=== PATIENT | male | born 1930 | race Caucasian/White ===

== ENCOUNTER 2018-06-21 16:29 | Day surgery (SDC) | payer MEDICARE, BC ==
[~2018-06-21] VITALS: Ht 165.1 cm; Wt 65.1 kg
[2018-06-21] VITALS (10 sets, daily range): BP systolic 136–177; BP diastolic 64–88; PULSE 58–81; RESP 14–29; Ht 165.1 cm; Wt 65.1 kg
[~2018-06-21 16:29] MED LIST: CLINDAMYCIN 900 MG/D5W (PMX) 50 ML IVPB SCH; LACTATED RINGER'S 1,000 ML IV SCH
[2018-06-21] MEDS ORDERED: OXYCODONE/ACETAMINOPHEN (5/325) TAB PO ONE (17:30)
[2018-06-21] MEDS ORDERED: LEVO75TA5 PO (17:40)
[2018-06-21] MEDS ORDERED: MELO7.5O PO (17:40)
[2018-06-21] MEDS ORDERED: CALCIUM 500 MG PO (17:43)
[2018-06-21] MEDS ORDERED: CART1TAB4 PO (17:43)
[2018-06-21] MEDS ORDERED: TIOT4MIS4 INHALATION (17:43)
[2018-06-21] MEDS ORDERED: MULTI PO (17:43)
--- NOTE | 2018-06-21 17:52 | HPN ---
Date/Time of Note Date/Time of Note DATE: 06/21/18 TIME: 17:51 Interval H&P Admission Note Pt. seen H&P reviewed: No system changes CHAU SOSA June 21, 2018 17:51
--- NOTE | 2018-06-21 17:58 | PREAC ---
Date/Time of Note Date/Time of Note DATE: 06/21/18 TIME: 17:56 Anesthesia Eval and Record Evaluation Time Pre-Procedure Interview DATE: 06/21/18 TIME: 17:56 Age 87 Sex male NPO: 8 hrs Preoperative diagnosis Left carpal tunnel syndrome Planned procedure Left carpal tunnel release Past Medical History Past Medical History: Includes Endo: Hypothyroid Pulm: COPD Surgery & Anesthesia Issues No known issue Meds Anticoagulation: No Beta Zarina within 24 hr: No Reason Beta Zarina not given: Pt. not on B-Zarina Reported Medications Tiotropium Br/Olodaterol HCl (Stiolto Respimat Inhal [place]) 4 Gm Mist.inhal, 2 PUFF INHALATION DAILY, #1 INHALER 06/21/18 Cartilage/Collagen/Bor/Hyalur (Move Free Ultra Tablet) 1 Each Tablet, 1 EACH PO, TAB 06/21/18 [calcium 500mg daily] No Conflict Check, 500 CAP PO DAILY 06/21/18 Multivitamins* (Theragran*) 1 Tab Tab, 1 TAB PO DAILY, TAB 06/21/18 Levothyroxine Sodium* (Levothyroxine Sodium*) 75 Mcg Tablet, 75 MCG PO BEFORE BREAKFAST, #30 TAB 06/21/18 Meloxicam* (Meloxicam*) 7.5 Mg/5 Ml Oral.susp, 15 MG PO DAILY, #300 ML 06/21/18 Current Medications Lactated Ringer's 1,000 ml @ 20 mls/hr Q24H IV ; Start 06/21/18 at 06:00; Stop 06/23/18 at 07:59 Meds reviewed: Yes Allergies Coded Allergies: Penicillins (Verified Allergy, Unknown, 06/20/18) pt cant remember, it was back in 1956 Allergies Reviewed: Yes Labs/Studies Labs Reviewed: Reviewed by anesthesiologist test: N/A Pre-procedure Exam Last vitals Vital Signs Date Temp Pulse Resp B/P (MAP) Pulse Ox O2 O2 Flow FiO2 Time Delivery Rate 06/21/18 98.4 81 18 177/81 93 Room Air 17:26 (113) Airway: Adequate mouth opening Mallampati: Mallampati I Teeth: Normal Lung: Normal Heart: Normal ASA Physical Status ASA physical status: 2 Emergency: None Planned Anesthetic General/MAC: MAC Planned Pain Management Parenteral pain med Pre-operative Attestations Prior to commencing anesthesia and surgery, the patient was re-evaluated, there was verification of: *The patient's identity *The results of appropriate recent lab work and preoperative vital signs *The above evaluation not changing prior to induction *Anesthetic plan, risk benefits, alternative and complications discussed with patient/family; questions answered; patient/family understands, accepts and wishes to proceed. MARTIN RICKETTS MD June 21, 2018 17:58
[2018-06-21] MEDS ORDERED: MIDAZOLAM 1 MG/ML 2 ML INJ IV PRN (18:00)
[2018-06-21] MEDS ORDERED: DIPHENHYDRAMINE 50 MG INJ IV PRN (18:00)
[2018-06-21] MEDS ORDERED: hydrALAzine 20 MG INJ IV PRN (18:00)
[2018-06-21] MEDS ORDERED: FENTAnyl 50 MCG/ML VIAL IV PRN ×2 (18:00)
[2018-06-21] MEDS ORDERED: METOCLOPRAMIDE 10 MG INJ IV PRN (18:00)
[2018-06-21] MEDS ORDERED: ONDANSETRON 4 MG INJ IV PRN (18:00)
[2018-06-21] MEDS ORDERED: EPHEDrine 25 MG/5 ML SYG IV PRN (18:00)
[2018-06-21] MEDS ORDERED: OXYCODONE/ACETAMINOPHEN (5/325) TAB PO PRN ×2 (18:00)
[2018-06-21] MEDS ORDERED: LABETALOL HCL 20MG INJ IV PRN (18:00)
[2018-06-21] MEDS ORDERED: MEPERIDINE 25 MG INJ IV PRN (18:00)
[2018-06-21] MEDS ORDERED: BUPIVACAINE 0.5% (SDV) 30 ML INJ ONE (18:03)
[2018-06-21] MEDS ORDERED: PROPOFOL 20 ML ONE (18:10)
[2018-06-21] MEDS ORDERED: FENTAnyl 50 MCG/ML VIAL ONE (18:11)
[2018-06-21] MEDS ORDERED: MIDAZOLAM 1 MG/ML 2 ML INJ ONE (18:11)
[2018-06-21] MEDS ORDERED: CLINDAMYCIN 900 MG/D5W (PMX) 50 ML IVPB ONE (18:21)
--- NOTE | 2018-06-21 18:55 | OPPN ---
Date/Time of Note Date/Time of Note DATE: 06/21/18 TIME: 18:54 Operative Report Preoperative Diagnosis Left carpal tunnel syndrome Postoperative Diagnosis Left carpal tunnel syndrome Operation/Procedure Performed Left carpal tunnel release Surgeon see signature line assistant director none Anesthesia: MAC Estimated blood loss: 0 - 10 ml's Transfusion Required none Specimen none Grafts/Implants none Complications none CHAU SOSA June 21, 2018 18:55
[2018-06-21] MEDS: FENTAnyl 50 MCG/ML VIAL IV PRN ×2 (19:07→19:13)
--- NOTE | 2018-06-21 19:21 | OPR ---
DATE OF OPERATION: 06/21/2018 SURGEON: David De Luna MD ANESTHESIA: Local MAC. PREOPERATIVE DIAGNOSIS: Left carpal tunnel syndrome. POSTOPERATIVE DIAGNOSIS: Left carpal tunnel syndrome. PROCEDURE: Left carpal tunnel release, open. OPERATIVE FINDINGS: Compression of the median nerve at carpal tunnel. INDICATION FOR PROCEDURE: An 87-year-old male with longstanding left carpal tunnel symptoms who failed conservative measures, elected to proceed with surgical intervention, understanding risks and demonstrated. DESCRIPTION OF PROCEDURE: The patient was seen in the preoperative area and all further questions were answered. Again, he gave informed consent understanding risks and benefits. He was taken to operative suite, placed in supine position. He was given sedation as well as Ancef 2 grams IV. Tourniquet was placed in left upper extremity and left upper extremity was prepped with ChloraPrep stick and draped in usual sterile fashion. Esmarch bandage was used to exsanguinate the extremity and tourniquet was inflated to 250 mmHg. A 2 cm incision at the base of the palm was utilized with sharp dissection carried down through skin and subcutaneous tissue. The palmar aponeurosis was incised along its ulnar border and retractors were deepened. The transverse carpal ligament was divided along its ulnar border approximately 3 mm radial to the hook of the hamate. Retraction was placed proximal and distal and the proximal and distal transverse carpal ligament were divided under direct visualization. Wound was copiously irrigated and skin was closed with 5-0 nylon. Xeroform was placed over the wound followed by sterile gauze, Webril and a short arm splint. Tourniquet was deflated after 10 minutes. The patient was awakened from anesthesia. He was taken to postoperative suite in stable condition, tolerated procedure well without complication. SPECIMENS: None. ESTIMATED BLOOD LOSS: 5 mL. COUNTS: Sponge, instrument, needle counts correct. TOURNIQUET TIME: 10 minutes. CONDITION ON DISCHARGE: Stable. The patient was given a nonrefillable 5-day prescription for pain medication for surgery today. Dictated By: DAVID LEWIS/QAMAR Conf#: [id number] DID#: [id number] RICK
--- NOTE | 2018-06-21 19:25 | PAC ---
Date/Time of Note Date/Time of Note DATE: 06/21/18 TIME: 19:25 Post-Anesthesia Notes Post-Anesthesia Note Last documented vital signs Vital Signs Date Temp Pulse Resp B/P (MAP) Pulse Ox O2 O2 Flow FiO2 Time Delivery Rate 06/21/18 58 22 153/66 91 19:14 (95) 06/21/18 Room Air 19:09 06/21/18 99.6 18:57 Activity: WNL Respiratory function: WNL Cardiovascular function: WNL Mental status: Baseline Pain reasonably controlled: Yes Hydration appropriate: Yes Nausea/Vomiting absent: Yes Comments BT: 99.1 MARTIN RICKETTS MD June 21, 2018 19:25
== END 2018-06-21 19:59 | disposition home or self-care (01) ==
LOC: SDS 16:29
PROVIDERS: ATTEND Orthopaedic Surgery Hand Surgery
DX: G56.02 Carpal tunnel syndrome, left upper limb (principal); E03.9 Hypothyroidism, unspecified; J44.9 Chronic obstructive pulmonary disease, unspecified
CPT/HCPCS: 64721; J2250; J3010